=== PATIENT | male | born 1975 | race Caucasian/White ===

== ENCOUNTER 2020-06-13 15:46 | Emergency (ER) | payer OTHER | END 2020-06-13 17:33 | disposition other institution (70) | LOC: ED 15:46 | DX: Z02.89 Encounter for other administrative examinations (principal) ==

== ENCOUNTER 2020-06-13 15:46 | Emergency (ER) | payer OTHER ==
[~2020-06-13] VITALS: Ht 175.3 cm; Wt 81.6 kg
[2020-06-13 15:52] VITALS: Ht 175.3 cm; Wt 81.6 kg
[2020-06-13 17:01] VITALS: BP 200/121
== END 2020-06-13 17:30 | disposition other institution (70) ==
LOC: ED 15:46
DX: I10 Essential (primary) hypertension (principal)
CPT/HCPCS: 99406